=== PATIENT | male | born 1950 | race Caucasian/White ===

== ENCOUNTER 2022-11-27 14:46 | Inpatient (IN) | payer MEDICARE, BC ==
[2022-11-27 16:39] LABS: Bacteria/HPF None Seen HPF (None Seen); Bilirubin Negative (Negative); Blood, Urine 3+ (Negative); CAUTI Indications for Culture Alt mental st,lethar; Clarity Clear (Clear); Glucose, Urine (Dipstick) 300 mg/dL (Negative); Ketone, Urine Trace mg/dL (Negative); Leukocyte Negative Leu/uL (Negative); Nitrite Negative (Negative); Protein, Urine (Dipstick) Negative (Neg-Trace); RBC/HPF Greater than 50 HPF (0-3); Specific Gravity, Urine 1.014 (1.002-1.036); Squamous Epithelial 0-3 HPF (0-3); Urobilinogen Normal mg/dL (Less than 2); WBC/HPF 0-3 HPF (0-3)
[2022-11-27 16:41] LABS: Urine Culture Reflex No No
[2022-11-27 16:47] LABS: Amphetamine Not Detected (NotDetected); Barbiturates Screen Not Detected (NotDetected); Benzodiazepine Screen Not Detected (NotDetected); Cocaine Metabolite Screen Not Detected (NotDetected); Methadone Not Detected (NotDetected); Methamphetamine Not Detected (NotDetected); Opiate Screen Not Detected (NotDetected); Oxycodone Screen Not Detected (NotDetected); Phencyclidine (PCP) Not Detected (NotDetected); THC/Cannabinoid Screen Not Detected (NotDetected); Tricyclic Screen Not Detected (NotDetected)
[2022-11-27 17:53] LABS: #Monocytes 1.2 thou/uL (0.11-0.59); #Neutrophils 10.4 thou/uL (1.40-6.50); %Basophils 0.3 % (0.0-1.0); %Eosinophils 0.2 % (0.0-10.0); %Lymphocytes 11.7 % (21.0-51.0); %Monocytes 8.7 % (0.0-10.0); %Neutrophils 78.7 % (42.0-75.0); Hematocrit 38.7 % (42.0-52.0); Hemoglobin 13.8 g/dL (14.0-18.0); Mean Corpuscular HGB CONC 35.7 g/dL (32.0-36.0); Mean Corpuscular Hemoglobin 32.5 pg (27.0-31.0); Mean Corpuscular Volume 91.1 fl (78.0-98.0); Mean Platelet Volume 10.5 fL (7.4-10.4); Platelet Count 174 10x3/uL (130-400); Red Blood Cell (RBC) Count 4.25 mill/uL (4.70-6.10); White Blood Cell (WBC) Count 13.2 10x3/uL (4.8-10.8)
[2022-11-27 17:59] LABS: Base Excess -10.8 mEq/L (-2.0 to +3.0); Calcium, Ionized (venous) 1.25 mmol/L (1.16-1.32); Chloride (VBG) 98 mmol/L (98-106); Hematocrit-VBG 44 % (42.0-52.0); Potassium (VBG) 5.07 mmol/L (3.70-5.30); Sodium 124.3 mmol/L (133-146); pH (venous) 7.281 (7.32-7.43)
[2022-11-27 18:00] LABS: Actual Bicarbonate (HCO3v) 14.5 mEq/L (22-28)
[2022-11-27 18:06] LABS: INR-International Normal Ratio 1.1; Prothrombin Time 14.5 sec (12.0-14.7)
[2022-11-27 18:07] LABS: PTT 26.8 sec (22.9-36.1)
[2022-11-27 18:15] LABS: Acetaminophen Less than 10 mcg/mL (10.0-30.0); Alcohol Less than 10.0 mg/dL (Less than 10); Salicylate Less than 8.0 mg/dL (15.0-30.0)
[2022-11-27 18:16] LABS: ALT (SGPT) 10 U/L (8-55); AST (SGOT) 14 U/L (5-34); Albumin 3.6 g/dL (3.4-4.8); Alkaline Phosphatase 66 U/L (40-110); Anion Gap 14 mmol/L (10-20); BUN (Urea Nitrogen) 85 mg/dL (8.4-25.7); Bilirubin, Total 0.4 mg/dL (0.2-1.2); Calc. Creatinine Clearance 0 mL/min (70-130); Calcium 10.1 mg/dL (7.8-10.44); Carbon Dioxide 14 mmol/L (23-31); Chloride 100 mmol/L (98-107); Estimated GFR 16; Globulin 2.1 g/dL (2.4-3.5); Glucose 174 mg/dL (83-110); Potassium 5.2 mmol/L (3.5-5.1); Protein, Total 5.7 g/dL (5.8-8.1); Sodium 123 mmol/L (136-145)
[2022-11-27] MEDS ORDERED: Cefepime 2 GM VIAL ONE (18:30)
[2022-11-27 18:31] LABS: Troponin I 0.014 ng/mL (< 0.028)
[2022-11-27] MEDS ORDERED: Sodium Chloride 0.9% 1,000 ML IV SCH ×2 (20:00→22:48)
[2022-11-27] MEDS ORDERED: Senokot S 8.6-50 MG TAB PO PRN (20:07)
[2022-11-27] MEDS ORDERED: Ondansetron ODT 4 MG TAB PO PRN (20:07)
[2022-11-27] MEDS ORDERED: Calcium Carbonate 500 MG ChewTAB PO PRN (20:07)
[2022-11-27] MEDS ORDERED: Dextrose 5% in Water 1,000 ML IV PRN (20:22)
[2022-11-27] MEDS ORDERED: Dextrose 50% Abboject 50 ML SYRINGE SLOW IVP PRN (20:22)
[2022-11-27] MEDS ORDERED: Glucagon 1 MG/ML KIT IM PRN (20:22)
[2022-11-27] MEDS ORDERED: Thiamine HCl 200 MG/2 ML VIAL SLOW IVP SCH (20:30)
[2022-11-27] MEDS ORDERED: Famotidine/PF 20 mg/2ml Vial SLOW IVP SCH (21:00)
[2022-11-27] MEDS ORDERED: Famotidine 20 MG TAB PO SCH (21:00)
[2022-11-27] MEDS: Nicotine 14 MG PATCH TD SCH (21:58)
[2022-11-27 22:20] LABS: Anion Gap 14 mmol/L (10-20); BUN (Urea Nitrogen) 89 mg/dL (8.4-25.7); CK (CPK) 245 U/L (30-200); Calc. Creatinine Clearance 0 mL/min (70-130); Calcium 10.4 mg/dL (7.8-10.44); Carbon Dioxide 17 mmol/L (23-31); Chloride 102 mmol/L (98-107); Estimated GFR 16; Glucose 151 mg/dL (83-110); Magnesium 2.1 mg/dL (1.6-2.6); Phosphorus 3.9 mg/dL (2.3-4.7); Potassium 5.5 mmol/L (3.5-5.1); Sodium 127 mmol/L (136-145)
[2022-11-27 22:50] VITALS: BMI 29.1
[2022-11-27] MEDS ORDERED: LOKELMA 10 GM PACKET PO SCH (23:00)
[2022-11-28 02:59] LABS: #Basophils 0.1 thou/uL (0.0-0.2); #Eosinphils 0.1 thou/uL (0.0-0.7); #Monocytes 1.5 thou/uL (0.11-0.59); #Neutrophils 12.2 thou/uL (1.40-6.50); %Basophils 0.6 % (0.0-1.0); %Eosinophils 0.6 % (0.0-10.0); %Lymphocytes 10.4 % (21.0-51.0); %Monocytes 9.6 % (0.0-10.0); %Neutrophils 78.4 % (42.0-75.0); Hematocrit 39.8 % (42.0-52.0); Hemoglobin 14.1 g/dL (14.0-18.0); Mean Corpuscular HGB CONC 35.4 g/dL (32.0-36.0); Mean Corpuscular Hemoglobin 32.3 pg (27.0-31.0); Mean Corpuscular Volume 91.3 fl (78.0-98.0); Mean Platelet Volume 11.1 fL (7.4-10.4); Platelet Count 180 10x3/uL (130-400); RBC Distribution Width 12.9 % (11.5-14.5); Red Blood Cell (RBC) Count 4.36 mill/uL (4.70-6.10); White Blood Cell (WBC) Count 15.6 10x3/uL (4.8-10.8)
[2022-11-28 03:20] LABS: Anion Gap 15 mmol/L (10-20); BUN (Urea Nitrogen) 82 mg/dL (8.4-25.7); Calc. Creatinine Clearance 23 mL/min (70-130); Calcium 10.5 mg/dL (7.8-10.44); Carbon Dioxide 14 mmol/L (23-31); Chloride 104 mmol/L (98-107); Estimated GFR 17; Glucose 154 mg/dL (83-110); Sodium 128 mmol/L (136-145)
[2022-11-28 07:19] LABS: Anion Gap 14 mmol/L (10-20); BUN (Urea Nitrogen) 77 mg/dL (8.4-25.7); Calc. Creatinine Clearance 25 mL/min (70-130); Calcium 10.5 mg/dL (7.8-10.44); Carbon Dioxide 14 mmol/L (23-31); Chloride 104 mmol/L (98-107); Estimated GFR 18; Glucose 167 mg/dL (83-110); Potassium 5.3 mmol/L (3.5-5.1); Sodium 127 mmol/L (136-145)
[2022-11-28 08:52] LABS: Base Excess -9.1 mEq/L (-2.0 to +3.0); Chloride (VBG) 103 mmol/L (98-106); Hematocrit-VBG 43 % (42.0-52.0); Hemoglobin (Hb) 14.6 g/dL (12.6-17.4); Potassium (VBG) 5.35 mmol/L (3.70-5.30); Sodium 128.1 mmol/L (133-146); pH (venous) 7.345 (7.32-7.43)
[2022-11-28] MEDS ORDERED: VANCOMYCIN 1.25 GM/250 ML BAG 1.25 GM in Premix Bag 1 BAG IVPB SCH (10:06)
[2022-11-28] MEDS ORDERED: Dexamethasone 10 MG in Sodium Chloride 0.9% 50 ML IVPB SCH (10:15)
[2022-11-28] MEDS ORDERED: Sodium Bicarbonate 150 MEQ in Dextrose 5% in Water 1,000 ML IV SCH (11:00)
[2022-11-28] MEDS: Pantoprazole 40 MG VIAL IVP SCH (11:31)
[2022-11-28] MEDS ORDERED: Vancomycin Dose by Levels Sliding Scale (Wt 71-99) FS SCH (11:45)
[2022-11-28] MEDS ORDERED: VANCOMYCIN 2 GRAM/500 ML BAG 2 GM in Premix Bag 1 BAG IVPB SCH (12:00)
[2022-11-28] MEDS: Sodium Chloride 0.9% 1,000 ML IV SCH ×2 (12:28→23:34)
[2022-11-28] MEDS: cefTRIAXone\\ROCEPHIN 2 GM in Sodium Chloride 0.9% 100 ML IVPB SCH ×2 (13:58→23:31)
[2022-11-28] MEDS ORDERED: HumaLOG 300 UNITS/3 ML VIAL SC PRN (14:30)
[2022-11-28] MEDS: Nicotine 14 MG PATCH TD SCH (20:46)
[2022-11-28] MEDS: Thiamine HCl 200 MG/2 ML VIAL SLOW IVP SCH (20:46)
[2022-11-29 04:31] LABS: #Monocytes 0.7 thou/uL (0.11-0.59); #Neutrophils 8.2 thou/uL (1.40-6.50); %Basophils 0.4 % (0.0-1.0); %Lymphocytes 9.1 % (21.0-51.0); %Monocytes 7.2 % (0.0-10.0); %Neutrophils 82.8 % (42.0-75.0); Hematocrit 41.4 % (42.0-52.0); Hemoglobin 14.6 g/dL (14.0-18.0); Mean Corpuscular HGB CONC 35.3 g/dL (32.0-36.0); Mean Corpuscular Hemoglobin 32.7 pg (27.0-31.0); Mean Corpuscular Volume 92.6 fl (78.0-98.0); Mean Platelet Volume 10.8 fL (7.4-10.4); Platelet Count 184 10x3/uL (130-400); RBC Distribution Width 13.1 % (11.5-14.5); Red Blood Cell (RBC) Count 4.47 mill/uL (4.70-6.10); White Blood Cell (WBC) Count 9.9 10x3/uL (4.8-10.8)
[2022-11-29 04:58] LABS: ALT (SGPT) 14 U/L (8-55); AST (SGOT) 23 U/L (5-34); Albumin 3.9 g/dL (3.4-4.8); Alkaline Phosphatase 72 U/L (40-110); Anion Gap 13 mmol/L (10-20); BUN (Urea Nitrogen) 59 mg/dL (8.4-25.7); Bilirubin, Total 0.2 mg/dL (0.2-1.2); Calc. Creatinine Clearance 40 mL/min (70-130); Calcium 10.6 mg/dL (7.8-10.44); Carbon Dioxide 15 mmol/L (23-31); Chloride 109 mmol/L (98-107); Estimated GFR 32; Globulin 2.3 g/dL (2.4-3.5); Glucose 169 mg/dL (83-110); Potassium 5.3 mmol/L (3.5-5.1); Protein, Total 6.2 g/dL (5.8-8.1); Sodium 132 mmol/L (136-145)
[2022-11-29] MEDS: hydrALAZINE 20 MG/ML VIAL SLOW IVP PRN (05:29)
[2022-11-29] MEDS: Lorazepam 2 MG/ML VIAL SLOW IVP PRN (07:45)
[2022-11-29] MEDS: Pantoprazole 40 MG VIAL IVP SCH (09:09)
[2022-11-29] MEDS: methylPREDNISolone Sod Succ 40 MG VIAL IVP SCH (10:35)
[2022-11-29 10:57] LABS: Syphilis Antibody Nonreactive (Nonreactive); Syphilis Antibody Index 0.06 S/CO (<1.00 Non-Reactive)
[2022-11-29] MEDS: cefTRIAXone\\ROCEPHIN 2 GM in Sodium Chloride 0.9% 100 ML IVPB SCH ×2 (11:20→23:39)
[2022-11-29 11:53] LABS: Anion Gap 14 mmol/L (10-20); BUN (Urea Nitrogen) 56 mg/dL (8.4-25.7); Calc. Creatinine Clearance 43 mL/min (70-130); Calcium 10.8 mg/dL (7.8-10.44); Carbon Dioxide 16 mmol/L (23-31); Chloride 110 mmol/L (98-107); Estimated GFR 35; Glucose 161 mg/dL (83-110); Potassium 5.1 mmol/L (3.5-5.1); Sodium 135 mmol/L (136-145)
[2022-11-29] MEDS ORDERED: levETIRAcetam 500 MG/5 ML VIAL SLOW IVP SCH (13:30)
[2022-11-29] MEDS: Sodium Chloride 0.9% 1,000 ML IV SCH (14:10)
[2022-11-29 15:25] LABS: Vancomycin, Trough 15.1 ug/mL
[2022-11-29] MEDS: Vancomycin 1 GM in Premix Bag 1 BAG IVPB SCH (16:45)
[2022-11-29] MEDS: HumaLOG 300 UNITS/3 ML VIAL SC PRN (16:53)
[2022-11-29] MEDS: Thiamine HCl 200 MG/2 ML VIAL SLOW IVP SCH (20:27)
[2022-11-29] MEDS: Nicotine 14 MG PATCH TD SCH (20:27)
[2022-11-29] MEDS: levETIRAcetam 500 MG/5 ML VIAL SLOW IVP SCH (20:27)
[2022-11-30 04:23] LABS: %Basophils 0.3 % (0.0-1.0); %Eosinophils 0.2 % (0.0-10.0); %Lymphocytes 14.2 % (21.0-51.0); %Monocytes 9.5 % (0.0-10.0); %Neutrophils 75.3 % (42.0-75.0); Hematocrit 46.2 % (42.0-52.0); Hemoglobin 16.1 g/dL (14.0-18.0); Mean Corpuscular HGB CONC 34.8 g/dL (32.0-36.0); Mean Corpuscular Hemoglobin 32.4 pg (27.0-31.0); Mean Platelet Volume 10.9 fL (7.4-10.4); Platelet Count 202 10x3/uL (130-400); RBC Distribution Width 13.3 % (11.5-14.5); Red Blood Cell (RBC) Count 4.97 mill/uL (4.70-6.10); White Blood Cell (WBC) Count 10.6 10x3/uL (4.8-10.8)
[2022-11-30] MEDS: Sodium Chloride 0.9% 1,000 ML IV SCH ×2 (04:38→18:13)
[2022-11-30 04:43] LABS: ALT (SGPT) 16 U/L (8-55); AST (SGOT) 21 U/L (5-34); Albumin 4.3 g/dL (3.4-4.8); Alkaline Phosphatase 77 U/L (40-110); Anion Gap 17 mmol/L (10-20); BUN (Urea Nitrogen) 51 mg/dL (8.4-25.7); Bilirubin, Total 0.3 mg/dL (0.2-1.2); Calc. Creatinine Clearance 52 mL/min (70-130); Calcium 11.5 mg/dL (7.8-10.44); Carbon Dioxide 18 mmol/L (23-31); Chloride 109 mmol/L (98-107); Estimated GFR 44; Globulin 2.7 g/dL (2.4-3.5); Glucose 160 mg/dL (83-110); Magnesium 1.7 mg/dL (1.6-2.6); Potassium 5.3 mmol/L (3.5-5.1); Sodium 139 mmol/L (136-145)
[2022-11-30] MEDS: Lorazepam 2 MG/ML VIAL SLOW IVP PRN (08:45)
[2022-11-30] MEDS: methylPREDNISolone Sod Succ 40 MG VIAL IVP SCH (10:33)
[2022-11-30] MEDS: Pantoprazole 40 MG VIAL IVP SCH (10:33)
[2022-11-30] MEDS: levETIRAcetam 500 MG/5 ML VIAL SLOW IVP SCH ×2 (10:40→20:43)
[2022-11-30 10:56] LABS: CSF RBC Count - Manual 1 /cu.mm (None Seen); CSF Source CSF; CSF WBC/NonHematics Count-Man 0 /cu.mm (0-5); Clarity Clear (Clear); Tube # 4
[2022-11-30 11:43] LABS: CSF, Glucose 115 mg/dL (40-70); CSF, Protein 39 mg/dL (15-40)
[2022-11-30] MEDS: cefTRIAXone\\ROCEPHIN 2 GM in Sodium Chloride 0.9% 100 ML IVPB SCH ×2 (11:55→23:41)
[2022-11-30] MEDS ORDERED: LOKELMA 10 GM PACKET PO SCH (14:15)
[2022-11-30] MEDS ORDERED: Sodium Chloride 0.9% 500 ML IV SCH (15:30)
[2022-11-30] MEDS ORDERED: Zoledronic Acid 4 MG in Sodium Chloride 0.9% 100 ML IVPB SCH (15:30)
[2022-11-30 16:14] LABS: HSV 1 - DNA Negative (Negative); HSV 2 - DNA Negative (Negative)
[2022-11-30] MEDS: Vancomycin 1 GM in Premix Bag 1 BAG IVPB SCH (17:30)
[2022-11-30] MEDS: HumaLOG 300 UNITS/3 ML VIAL SC PRN ×2 (17:55→21:13)
[2022-11-30 18:54] LABS: Anion Gap 19 mmol/L (10-20); BUN (Urea Nitrogen) 48 mg/dL (8.4-25.7); Calc. Creatinine Clearance 55 mL/min (70-130); Calcium 10.5 mg/dL (7.8-10.44); Carbon Dioxide 12 mmol/L (23-31); Chloride 113 mmol/L (98-107); Estimated GFR 48; Glucose 274 mg/dL (83-110); Sodium 138 mmol/L (136-145)
[2022-11-30] MEDS: Thiamine HCl 200 MG/2 ML VIAL SLOW IVP SCH (20:43)
[2022-11-30] MEDS: Nicotine 14 MG PATCH TD SCH (20:43)
[2022-12-01 04:38] LABS: #Monocytes 0.9 thou/uL (0.11-0.59); #Neutrophils 7.4 thou/uL (1.40-6.50); %Basophils 0.2 % (0.0-1.0); %Eosinophils 0.1 % (0.0-10.0); %Lymphocytes 13.7 % (21.0-51.0); %Monocytes 9.6 % (0.0-10.0); %Neutrophils 75.9 % (42.0-75.0); Hematocrit 43.9 % (42.0-52.0); Hemoglobin 14.9 g/dL (14.0-18.0); Mean Corpuscular HGB CONC 33.9 g/dL (32.0-36.0); Mean Corpuscular Hemoglobin 31.9 pg (27.0-31.0); Mean Platelet Volume 10.6 fL (7.4-10.4); Platelet Count 205 10x3/uL (130-400); RBC Distribution Width 13.5 % (11.5-14.5); Red Blood Cell (RBC) Count 4.67 mill/uL (4.70-6.10); White Blood Cell (WBC) Count 9.8 10x3/uL (4.8-10.8)
[2022-12-01 04:53] LABS: Anion Gap 16 mmol/L (10-20); Calcium 10.9 mg/dL (7.8-10.44); Carbon Dioxide 12 mmol/L (23-31); Chloride 115 mmol/L (98-107); Sodium 138 mmol/L (136-145)
[2022-12-01] MEDS: Sodium Chloride 0.9% 1,000 ML IV SCH (04:53)
[2022-12-01 05:03] LABS: BUN (Urea Nitrogen) 44 mg/dL (8.4-25.7); Calc. Creatinine Clearance 58 mL/min (70-130); Estimated GFR 52; Glucose 199 mg/dL (83-110); Magnesium 1.5 mg/dL (1.6-2.6)
[2022-12-01] MEDS ORDERED: Sodium Bicarbonate 150 MEQ in Dextrose 5% in Water 1,000 ML IV SCH (08:30)
[2022-12-01] MEDS: methylPREDNISolone Sod Succ 40 MG VIAL IVP SCH (09:25)
[2022-12-01] MEDS: Pantoprazole 40 MG VIAL IVP SCH (09:25)
[2022-12-01] MEDS: levETIRAcetam 500 MG/5 ML VIAL SLOW IVP SCH ×2 (09:25→20:09)
[2022-12-01] MEDS: cefTRIAXone\\ROCEPHIN 2 GM in Sodium Chloride 0.9% 100 ML IVPB SCH (12:54)
[2022-12-01 15:59] LABS: Vancomycin, Trough 15.4 ug/mL
[2022-12-01] MEDS ORDERED: Vancomycin 1 GM in Premix Bag 1 BAG IVPB SCH ×2 (16:00→17:00)
[2022-12-01] MEDS: hydrALAZINE 20 MG/ML VIAL SLOW IVP PRN (20:09)
[2022-12-01] MEDS: Acetaminophen 325 MG TAB PO PRN (20:10)
[2022-12-01] MEDS: Nicotine 14 MG PATCH TD SCH (20:42)
[2022-12-01] MEDS: HumaLOG 300 UNITS/3 ML VIAL SC PRN (22:11)
[2022-12-02] MEDS: cefTRIAXone\\ROCEPHIN 2 GM in Sodium Chloride 0.9% 100 ML IVPB SCH (00:40)
[2022-12-02] MEDS: hydrALAZINE 20 MG/ML VIAL SLOW IVP PRN (00:48)
[2022-12-02] MEDS: Ipratropium/Albuterol 3 ML NEB NEB PRN ×2 (00:51→14:06)
[2022-12-02 04:37] LABS: #Neutrophils 6.6 thou/uL (1.40-6.50); %Basophils 0.3 % (0.0-1.0); %Eosinophils 0.1 % (0.0-10.0); %Lymphocytes 15.3 % (21.0-51.0); %Monocytes 10.8 % (0.0-10.0); %Neutrophils 72.3 % (42.0-75.0); Hematocrit 45.1 % (42.0-52.0); Hemoglobin 15.4 g/dL (14.0-18.0); Mean Corpuscular HGB CONC 34.1 g/dL (32.0-36.0); Mean Corpuscular Hemoglobin 31.8 pg (27.0-31.0); Mean Corpuscular Volume 93.2 fl (78.0-98.0); Mean Platelet Volume 10.6 fL (7.4-10.4); Platelet Count 211 10x3/uL (130-400); RBC Distribution Width 13.2 % (11.5-14.5); Red Blood Cell (RBC) Count 4.84 mill/uL (4.70-6.10); White Blood Cell (WBC) Count 9.1 10x3/uL (4.8-10.8)
[2022-12-02 05:41] LABS: Anion Gap 17 mmol/L (10-20); BUN (Urea Nitrogen) 42 mg/dL (8.4-25.7); Calc. Creatinine Clearance 58 mL/min (70-130); Carbon Dioxide 18 mmol/L (23-31); Chloride 113 mmol/L (98-107); Estimated GFR 51; Glucose 233 mg/dL (83-110); Potassium 3.9 mmol/L (3.5-5.1); Sodium 144 mmol/L (136-145)
[2022-12-02] MEDS: HumaLOG 300 UNITS/3 ML VIAL SC PRN ×3 (06:23→18:24)
[2022-12-02] MEDS: Pantoprazole 40 MG VIAL IVP SCH (09:58)
[2022-12-02] MEDS: levETIRAcetam 500 MG/5 ML VIAL SLOW IVP SCH (09:58)
[2022-12-02] MEDS: Sodium Bicarbonate 150 MEQ in Dextrose 5% in Water 1,000 ML IV SCH (10:57)
[2022-12-02] MEDS: Acetaminophen 325 MG TAB PO PRN (18:27)
[2022-12-02] MEDS: levETIRAcetam 500 MG TAB PO SCH (20:38)
[2022-12-02] MEDS: Nicotine 14 MG PATCH TD SCH (20:38)
[2022-12-02] MEDS ORDERED: cefTRIAXone\\ROCEPHIN 2 GM in Sodium Chloride 0.9% 100 ML IVPB SCH (21:00)
[2022-12-03] MEDS: Sodium Bicarbonate 150 MEQ in Dextrose 5% in Water 1,000 ML IV SCH (00:11)
[2022-12-03] MEDS: Acetaminophen 325 MG TAB PO PRN ×2 (03:45→15:24)
[2022-12-03] MEDS: HumaLOG 300 UNITS/3 ML VIAL SC PRN ×2 (05:46→13:32)
[2022-12-03 07:36] LABS: #Eosinphils 0.2 thou/uL (0.0-0.7); #Monocytes 0.8 thou/uL (0.11-0.59); #Neutrophils 4.5 thou/uL (1.40-6.50); %Basophils 0.6 % (0.0-1.0); %Eosinophils 2.9 % (0.0-10.0); %Lymphocytes 20.4 % (21.0-51.0); %Neutrophils 64.2 % (42.0-75.0); Hematocrit 39.5 % (42.0-52.0); Hemoglobin 13.3 g/dL (14.0-18.0); Mean Corpuscular HGB CONC 33.7 g/dL (32.0-36.0); Mean Corpuscular Hemoglobin 31.7 pg (27.0-31.0); Mean Corpuscular Volume 94.3 fl (78.0-98.0); Mean Platelet Volume 10.5 fL (7.4-10.4); Platelet Count 160 10x3/uL (130-400); RBC Distribution Width 13.2 % (11.5-14.5); Red Blood Cell (RBC) Count 4.19 mill/uL (4.70-6.10); White Blood Cell (WBC) Count 6.9 10x3/uL (4.8-10.8)
[2022-12-03 07:59] LABS: Anion Gap 10 mmol/L (10-20); BUN (Urea Nitrogen) 29 mg/dL (8.4-25.7); Calc. Creatinine Clearance 63 mL/min (70-130); Calcium 9.3 mg/dL (7.8-10.44); Carbon Dioxide 30 mmol/L (23-31); Chloride 103 mmol/L (98-107); Estimated GFR 59; Glucose 226 mg/dL (83-110); Potassium 3.3 mmol/L (3.5-5.1); Sodium 140 mmol/L (136-145)
[2022-12-03] MEDS: levETIRAcetam 500 MG TAB PO SCH (08:50)
[2022-12-03 12:04] VITALS: BP 163/78; TEMP 97.9
[2022-12-03] MEDS ORDERED: Potassium Chloride 20 MEQ TAB PO SCH (15:00)
== END 2022-12-03 17:20 | DRG 682 ==
LOC: ERS 14:46 → CCU 19:56 → SJJU 12-02 12:43
PROVIDERS: ADMIT Student in an Organized Health Care Education/Training Program; ATTEND Internal Medicine
PROC: 4A10X4Z Monitoring of Central Nervous Electrical Activity, External Approach (ICD-10-PCS; principal; 2022-11-29)
PROC: 009U3ZX Drainage of Spinal Canal, Percutaneous Approach, Diagnostic (ICD-10-PCS; 2022-11-30)
PROC: B01B1ZZ Fluoroscopy of Spinal Cord using Low Osmolar Contrast (ICD-10-PCS; 2022-11-30)
DX: N17.9 Acute kidney failure, unspecified (principal); G93.41 Metabolic encephalopathy; E87.1 Hypo-osmolality and hyponatremia; E87.20 Acidosis, unspecified; E86.0 Dehydration; N18.4 Chronic kidney disease, stage 4 (severe); J44.9 Chronic obstructive pulmonary disease, unspecified; E87.5 Hyperkalemia; F17.210 Nicotine dependence, cigarettes, uncomplicated; R44.1 Visual hallucinations; Z79.51 Long term (current) use of inhaled steroids; Z79.899 Other long term (current) drug therapy; D32.0 Benign neoplasm of cerebral meninges; I12.9 Hypertensive chronic kidney disease with stage 1 through stage 4 chronic kidney disease, or unspecified chronic kidney disease; E11.22 Type 2 diabetes mellitus with diabetic chronic kidney disease; D63.1 Anemia in chronic kidney disease; E83.52 Hypercalcemia; R53.81 Other malaise
CPT/HCPCS: 36415; 36416; 51702; 62270; 70450; 70551; 71045; 72125; 74018; 76770; 80048; 80053; 80202; 80306; 80307; 81001; 82140; 82310; 82550; 82805; 82945; 83735; 83930; 83935; 83970; 84100; 84157; 84300; 84484; 85025; 85610; 85730; 86780; 86850; 86900; 86901; 87040; 87086; 87529; 87798; 87899; 89051; 93005; 93306; 94640; 95712; 95819; 95957; 96365; C9113; J0133; J0360; J0692; J0696; J1100; J1815; J1953; J2060; J2920; J3370; J3370-JW; J3411; J3489; J3490; J7030; J7050; J7070; J7620

== ENCOUNTER 2023-01-25 11:17 | Outpatient (CLI) | payer BC | END 2023-01-25 11:18 | disposition home or self-care (01) | LOC: MRI 11:17 | PROVIDERS: ATTEND Neurological Surgery | DX: D32.0 Benign neoplasm of cerebral meninges (principal) | CPT/HCPCS: 70553 ==

== ENCOUNTER 2023-06-15 08:42 | Outpatient (CLI) | payer MEDICARE | END 2023-06-15 08:43 | disposition home or self-care (01) | LOC: NM 08:42 | PROVIDERS: ATTEND Urology | DX: C61 Malignant neoplasm of prostate (principal); M19.90 Unspecified osteoarthritis, unspecified site | CPT/HCPCS: 78306; A9503 ==

== ENCOUNTER 2023-06-17 12:46 | Outpatient (CLI) | payer MEDICARE | END 2023-06-17 12:47 | disposition home or self-care (01) | LOC: BICRAD 12:46 | PROVIDERS: ATTEND Urology | DX: C61 Malignant neoplasm of prostate (principal) | CPT/HCPCS: 71046 ==